=== PATIENT | female | born 1975 | race Caucasian/White ===

== ENCOUNTER → 2021-04-30 | Outpatient (CLI) | payer OTHER ==
[~2021-04-30] MED LIST: BENADRYL25 MG PO; LORATIDINE 10 M10 M1 PO; OXYCODONE HCL 55 MG PO
== END | disposition home or self-care (01) ==
LOC: M.LAB 17:05
PROVIDERS: ATTEND Surgery
DX: Z01.818 Encounter for other preprocedural examination (principal); Z20.822 Contact with and (suspected) exposure to COVID-19; K80.50 Calculus of bile duct without cholangitis or cholecystitis without obstruction; Z79.899 Other long term (current) drug therapy; Z88.0 Allergy status to penicillin; Z88.8 Allergy status to other drugs, medicaments and biological substances

== ENCOUNTER → 2021-05-01 | Day surgery (SDC) | payer OTHER ==
--- NOTE | 2021-05-03 11:08 | PATH ---
[address] [address] PATHOLOGY RPT PROCEDURE Name: CAT DELUNA Room: [facility].#: [id number] Admission: 05/01/21 Date of : 77 Discharge: Report #: [id number] Path Case #: [id number] [facility] Accession Number: [id number] . 01 Material submitted: . gallbladder - GALLBLADDER . 01 Clinical history: . LAPAROSCOPIC CHOLECYSTECTOMY CHOLELITHIASIS . 02 Diagnosis: Gallbladder: - Chronic cholecystitis with prominent cholesterolosis. See comment. LBQ 05/03/2021 0944 Local . 02 Comment: No gallstones are identified in the submitted specimen. (MARY/db; 05/03/2021) . 02 Electronically signed: . Chaitanya Porter MD, Pathologist NPI- [id number] . 01 Gross description: . Fixative: Formalin Labeled: Gallbladder Specimen received: previously punctured gallbladder Dimensions: 6.7 x 2.5 x 1.1 cm Serosa: Blue-stewart Lymph node: None identified Mucosa: Velvety, dark brown with moderate cholesterolosis Average wall thickness: Up to 0.2 cm Calculi: None present Abnormalities: None identified . A1- [employer] Developer body, fundus, and the cystic duct margin. ([facility]; 05/01/2021) NRI/NRI 05/01/2021 1623 Local . 02 Pathologist provided ICD-10: K81.1, K82.4 . 02 CPT . 435130 Specimen Comment: A courtesy copy of this report has been sent to [phone], [phone] Specimen Comment: [address] [place] [id number] PATHOLOGY RPT PROCEDURE Name: CAT DELUNA JONELLE Room: [facility]#: [id number] Admission: 05/01/21 Date of : 77 Discharge: Report #: [id number] Path Case #: [id number] Specimen Comment: Report sent to / DR RICHMOND Performed at: 01 [facility] [address], [place], [place] [id number] MD Aiden Robertson MD Phone: [phone] Performed at: 02 [facility] [address] [place], [place] [id number] MD Chaitanya Porter MD Phone: [phone]
--- NOTE | 2021-05-04 14:04 | OP ---
[address] [address] OPERATIVE REPORT Name: CAT DELUNA Room: [facility].#: [id number] Admission: 05/01/21 Attend Phys: Taya Burt Discharge: Date of : 77 Report #: [id number] THIS REPORT FOR: cc: Michael Marie Vincent R. DO Gazzetta, Joshua D. DO ~ Dictated by Dr. Jonah Deleon, PGY5 DATE OF SURGERY: 05/01/2021 PREOPERATIVE DIAGNOSIS: Cholelithiasis. POSTOPERATIVE DIAGNOSIS: Cholelithiasis. PROCEDURE PERFORMED: Laparoscopic cholecystectomy. SURGEON: Tom Reed DO FONDANT PUFF MAKER: Jonah Deleon, PGY5 and Sanju, PGY1. ANESTHESIA: General and regional. ESTIMATED BLOOD LOSS: 5 mL. SPECIMEN: Gallbladder. COMPLICATIONS: None. INDICATIONS: The patient is a 45-year-old female who presented to the office with complaint of right upper quadrant abdominal pain. Workup revealed cholelithiasis on ultrasound. Due to her symptoms, we discussed laparoscopic cholecystectomy at length to include risks, benefits and alternatives. After discussion of risks, she agreed to proceed with surgery. Consent was obtained. DESCRIPTION OF PROCEDURE: The patient was taken to the operating room and placed in the supine position. SCDs were applied to bilateral lower extremities and seatbelt placed across the patient's waist, 900 mg of clindamycin given for surgical prophylaxis due to the patient's PENICILLIN ALLERGY. The patient underwent general endotracheal anesthesia without any complications. The patient's abdomen was prepped and draped in the standard sterile fashion. A timeout was performed confirming the patient, procedure. An 11 blade scalpel was used to make an incision just above the umbilicus. Electrocautery used for hemostasis and to dissect down to the level of the fascia. Once the fascia was encountered, was grasped between 2 Kochers and scored with electrocautery. Two stitches of 0 Vicryl placed on either side of the fascia[place] [address] OPERATIVE REPORT Name: CAT DELUNA JONELLE Room: [facility].#: [id number] Admission: 05/01/21 Attend Phys: Taya Burt Discharge: Date of : 77 Report #: [id number] into the peritoneum. Finger sweep performed to confirm intra-abdominal placement. A 12 mm Marco trocar inserted into the abdomen. Insufflation was initiated without complication. Intra-abdominal contents were inspected. The gallbladder could be seen just at the edge of the liver, placed in reverse Trendelenburg, rotated towards the left. Three more trocars were placed, one subxiphoid, two in the right upper quadrant under direct visualization. The gallbladder was grasped and elevated. Attention was turned towards isolating cystic artery and cystic duct. Using electrocautery, the visceral peritoneum of the gallbladder was scored right at Estrellita's pouch, carried medially and laterally. The cystic duct was circumferentially isolated using a combination of hook electrocautery and [place] dissection. Once the cystic duct was seen going up into the gallbladder, the cystic artery was isolated just medial to this using a combination of hook electrocautery and [place] dissection, the critical view of safety was obtained. Both structures were seen up in the gallbladder. The common bile duct was visualized out of the surgical field. Two lip clips were placed on the proximal cystic duct, one on the distal cystic duct, one clip was placed on the proximal and one on the distal cystic artery. Both structures were cut. Electrocautery was used to carefully dissect the gallbladder off the bed of the liver. Hemostasis was ensured with electrocautery. The right upper quadrant was irrigated and all fluid was suctioned out. Gallbladder was placed in the laparoscopic EndoCatch bag. Insufflation was let down. All trocars were removed under direct visualization. Gallbladder and contents were removed from the supraumbilical trocar site. Supraumbilical fascia was reapproximated with one stitch of 0 Vicryl in a bbtygw-ic-ulnma fashion. Subcutaneous tissue reapproximated with 3-0 Vicryl. All skin incisions were reapproximated with 4-0 Monocryl in subcuticular fashion. Sterile skin glue was applied to all incisions. All needle, instrument and sponge counts were correct x 2 at the end of the case. The patient was then awoken from general anesthesia and transferred to PACU in stable condition. <ELECTRONICALLY SIGNED> By: Tom Reed DO 05/04/21 1404 1019 [id number] Reed DO /moreno
== END | disposition home or self-care (01) ==
LOC: M.SUR
PROVIDERS: ATTEND Surgery
DX: K81.1 Chronic cholecystitis (principal); Z88.0 Allergy status to penicillin; Z79.899 Other long term (current) drug therapy